=== PATIENT | female | born 1995 | race Caucasian/White ===

== ENCOUNTER 2019-06-29 12:41 | Observation (INO) | payer BC ==
[2019-06-29] MEDS ORDERED: IV RINGERS,LACTATED 1000ML 1,000 ML IV SCH (13:36)
[2019-06-29 13:48] LABS: BILIRUBIN,URINE NEGATIVE (NEG); CLARITY,URINE CLEAR; COLOR,URINE YELLOW; NITRITE,URINE NEGATIVE (NEG); PH,URINE 6.5; PROTEIN,URINE NEGATIVE (NEG-TRACE); UROBILINOGEN,URINE 0.2 mg/dL (0.2 mg/dL)
[2019-06-29 13:51] LABS: BACTERIA,URINE MANY /HPF (0-FEW); RBC,URINE 0 /HPF (0-2); SQUAMOUS EPITHELIAL CELL,UR MOD /LPF; WBC,URINE OCC /HPF (0-4)
== END 2019-06-29 14:12 | disposition home or self-care (01) ==
LOC: 3 SO LND 12:41
PROVIDERS: ADMIT Obstetrics & Gynecology; ATTEND Obstetrics & Gynecology
DX: O36.8120 Decreased fetal movements, second trimester, not applicable or unspecified (principal); Z3A.26 26 weeks gestation of pregnancy
CPT/HCPCS: 81001; 87086; G0378; G0379

== ENCOUNTER 2020-06-03 13:20 | Emergency (ER) | payer BC ==
[~2020-06-03] VITALS: Ht 162.6 cm; Wt 77.3 kg
[2020-06-03 13:59] VITALS: BP 133/77
--- NOTE | 2020-06-03 14:04 | PHYS DOC ---
General Adult EDM: Chief Complaint: ABDOMINAL PAIN IN HPI: HPI: Patient is a 25 year old female presents to the emergency room for evaluation of lower abdominal pain since last . She reports last she found out she was , LMP 04/22/2020, G2, P1. She states she was at a clinic and being treated for gonorrhea when she had a positive test. She reports diffuse lower abdominal pain and concerned because "they told me the gonorrhea can get to the baby". She denies any vaginal bleeding. She reports vaginal discharge has resolved since treatment. She is not having any fevers, dysuria, diarrhea, or vomiting. Review of Systems: Review of Systems: Constitutional: Denies fever or chills. [] Eyes: Denies change in visual acuity. [] HENT: Denies nasal congestion or sore throat. [] Respiratory: Denies cough or shortness of breath. [] Cardiovascular: Denies chest pain or edema. [] GI: REPORTS abdominal pain, DENIES nausea, vomiting, bloody stools or diarrhea. DENIES VAGINAL BLEEDING OR DISCHARGE [] : Denies dysuria. [] Musculoskeletal: Denies back pain or joint pain. [] Integument: Denies rash. [] Neurologic: Denies headache, focal weakness or sensory changes. [] Endocrine: Denies polyuria or polydipsia. [] Lymphatic: Denies swollen glands. [] Psychiatric: Denies depression or anxiety. [] Heart Score: Risk Factors: Risk Factors: DM, Current or recent (<one month) smoker, HTN, HLP, family history of CAD, obesity. Risk Scores: Score 0 - 3: 2.5% MACE over next 6 weeks - Discharge Home Score 4 - 6: 20.3% MACE over next 6 weeks - Admit for Clinical Observation Score 7 - 10: 72.7% MACE over next 6 weeks - Early Invasive Strategies Allergies: Allergies: Allergies Coded Allergies Type Severity Reaction Last Updated Verified Sulfa (Sulfonamide Antibiotics) Allergy Mild Rash 2 Yes azithromycin Allergy Mild Rash 2/20 Yes cefotetan Allergy Mild Rash 12/20 Yes lansoprazole Allergy Mild Rash 12/20 Yes Penicillins Allergy Unknown Rash 2 Yes Physical Exam: PE: Constitutional: Well developed, well nourished, no acute distress, non-toxic appearance. [] HENT: Normocephalic, atraumatic, bilateral external ears normal, oropharynx moist, no oral exudates, nose normal. [] Eyes: PERRLA, EOMI, conjunctiva normal, no discharge. [] Neck: Normal range of motion, no tenderness, supple, no stridor. [] Cardiovascular:Heart rate regular rhythm, no murmur [] Lungs & Thorax: Bilateral breath sounds clear to auscultation [] Abdomen: Bowel sounds normal, soft, DIFFUSE LOWER ABD TTP, NO MCBURNEY POINT TTP, NO REBOUND OR PERITONEAL SIGNS, no masses, no pulsatile masses. [] : no vaginal discharge, no bleeding, os closed, no adnexal ttp Skin: Warm, dry, no erythema, no rash. [] Back: No tenderness, no CVA tenderness. [] Extremities: No tenderness, no cyanosis, no clubbing, ROM intact, no edema. [] Neurologic: Alert and oriented X 3, normal motor function, normal sensory function, no focal deficits noted. [] Psychologic: Affect normal, judgement normal, mood normal. [] Current Patient Data: Labs: Laboratory Tests Test 06/03/20 13:50 06/03/20 13:56 06/03/20 14:00 Urine Collection Type Unknown Urine Color Yellow Urine Clarity Clear Urine pH 6.0 Urine Specific Bonnie 1.020 Urine Protein Negative mg/dL Urine Glucose (UA) Negative mg/dL Urine Ketones (Stick) Negative mg/dL Urine Blood Negative Urine Nitrite Negative Urine Bilirubin Negative Urine Urobilinogen Dipstick 0.2 mg/dL Urine Leukocyte Esterase Negative Urine RBC 0 /HPF Urine WBC 1-4 /HPF Urine Squamous Epithelial Cells Mod /LPF Urine Bacteria Few /HPF Urine Mucus Marked /LPF Urine Test Positive White Blood Count 8.6 x10^3/uL Red Blood Count 4.41 x10^6/uL Hemoglobin 14.3 g/dL Hematocrit 41.4 % Mean Corpuscular Volume 94 fL Mean Corpuscular Hemoglobin 33 pg Mean Corpuscular Hemoglobin Concent 35 g/dL Red Cell Distribution Width 12.6 % Platelet Count 230 x10^3/uL Neutrophils (%) (Auto) 66 % Lymphocytes (%) (Auto) 25 % Monocytes (%) (Auto) 6 % Eosinophils (%) (Auto) 2 % Basophils (%) (Auto) 1 % Neutrophils # (Auto) 5.7 x10^3/uL Lymphocytes # (Auto) 2.2 x10^3/uL Monocytes # (Auto) 0.5 x10^3/uL Eosinophils # (Auto) 0.2 x10^3/uL Basophils # (Auto) 0.1 x10^3/uL Maternal Serum HCG Beta Subunit 963 mIU/mL Sodium Level 138 mmol/L Potassium Level 3.6 mmol/L Chloride Level 103 mmol/L Carbon Dioxide Level 27 mmol/L Anion Gap 8 Blood Urea Nitrogen 10 mg/dL Creatinine 0.7 mg/dL Estimated GFR (Cockcroft-Gault) 103.7 BUN/Creatinine Ratio 14 Glucose Level 84 mg/dL Calcium Level 8.7 mg/dL Total Bilirubin 0.3 mg/dL Aspartate Amino Transf (AST/SGOT) 10 U/L Alanine Aminotransferase (ALT/SGPT) 14 U/L Alkaline Phosphatase 47 U/L Total Protein 7.6 g/dL Albumin 3.8 g/dL Albumin/Globulin Ratio 1.0 EKG: EKG: [] Radiology/Procedures: Radiology/Procedures: [PROCEDURE: OB <14 WKS W/TV INDICATION: Reason: PELVIC PAIN / Spl. Instructions: / History: COMPARISON: None. TECHNIQUE: Grayscale and color ultrasound images uterus and adnexa. Transabdominal and transvaginal images obtained. Transvaginal images were needed to better visualize structures that were limited on transabdominal imaging. FINDINGS: Uterus: 70 x 50 x 40 mm. Intrauterine cystic structure is identified measuring approximately 3 mm. Adjacent hypoechoic region. The endometrial stripe measures up to about 18 mm. Right Ovary: 34 x 21 x 20 mm. Left Ovary: 45 x 20 x 20 mm. Vascular flow identified to bilateral ovaries. Suspected isoechoic lesion at the left ovary measuring up to 25 mm IMPRESSION: * Small cystic structure within the endometrial stripe. Could be secondary to an early gestational sac but given the lack of pole would consider obtaining a follow-up to ensure that there is appropriate development of a pole to exclude a pseudogestational sac or early failure. Thickened endometrial stripe is seen. * Small hypoechoic region is seen adjacent to the cystic structure which could be from subchorionic hematoma. * Isoechoic lesion of the left ovary. Possible cause would include hemorrhagic cyst but attention on follow-up. Electronically signed by: Yonatan Powers MD (06/03/2020 3:22 PM) [id number] ] Course & Med Decision Making: Course & Med Decision Making Pertinent Labs and Imaging studies reviewed. (See chart for details) [LMP 04/22/2020, per my calculations, EDC 01/27/2021, 6 weeks gestation, OB ultrasound indicates a cystic structure with no noted pole, possibly indicating very early versus failure, serum quant 963. 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 Pelvic rest recommended. She was treated last week for gonorrhea, states she also had her partner treated as well, they are practicing abstinence for 2 weeks as directed by clinic. Vital signs stable, patient is afebrile, nontoxic in appearance. She has no peritoneal signs on exam. She is stable for discharge home, will follow up with OB as discussed] Dragon Disclaimer: Dragon Disclaimer: This electronic medical record was generated, in whole or in part, using a voice recognition dictation system. Departure Departure Impression: Primary Impression: Abdominal pain affecting Additional Impression: Ultrasound scan abnormal Disposition: 01 DC HOME SELF CARE/HOMELESS Referrals: DELORIS HERCULES NP-Varinder (PCP) KALEB NEWELL Jr, MD Patient Instructions: Abdominal Pain During Additional Instructions: It is important that you schedule a OB appointment in the next week. The ultrasound today may indicate early versus failure as we have discussed today. Ultrasound and hCG levels will need to be repeated. Henrique quijano practice strict pelvic rest as we have discussed. Return to the emergency room for new or worsening symptoms. [facility] SPEECH THERAPIST Jun 03, 2020 14:04
[2020-06-03 14:14] LABS: BASO # 0.1 x10^3/uL (0.0-0.2); BASO % 1 % (0-3); EOS # 0.2 x10^3/uL (0.0-0.7); EOS % 2 % (0-3); HEMATOCRIT 41.4 % (36.0-47.0); HEMOGLOBIN 14.3 g/dL (12.0-15.5); LYMPH # 2.2 x10^3/uL (1.0-4.8); LYMPH % 25 % (24-48); MEAN CORPUSCULAR HEMOGLOBIN 33 pg (25-35); MEAN CORPUSCULAR HGB CONC 35 g/dL (31-37); MEAN CORPUSCULAR VOLUME 94 fL (79-100); MONO # 0.5 x10^3/uL (0.0-1.1); MONO % 6 % (0-9); NEUT # 5.7 x10^3/uL (1.8-7.7); NEUT % 66 % (31-73); PLATELET COUNT 230 x10^3/uL (140-400); RED BLOOD COUNT 4.41 x10^6/uL (3.50-5.40); RED CELL DISTRIBUTION WIDTH 12.6 % (11.5-14.5); WHITE BLOOD COUNT 8.6 x10^3/uL (4.0-11.0)
[2020-06-03 14:31] LABS: U PREG PATIENT POSITIVE (NEG)
[2020-06-03 14:33] LABS: CALCIUM 8.7 mg/dL (8.5-10.1); CREATININE 0.7 mg/dL (0.6-1.0); GFR 103.7; POTASSIUM 3.6 mmol/L (3.5-5.1)
[2020-06-03 14:39] LABS: ALBUMIN 3.8 g/dL (3.4-5.0); TOTAL BILIRUBIN 0.3 mg/dL (0.2-1.0); TOTAL PROTEIN 7.6 g/dL (6.4-8.2)
[2020-06-03 15:11] LABS: BILIRUBIN,URINE NEGATIVE (NEG); CLARITY,URINE CLEAR; COLOR,URINE YELLOW; NITRITE,URINE NEGATIVE (NEG); PROTEIN,URINE NEGATIVE (NEG-TRACE); UROBILINOGEN,URINE 0.2 mg/dL (0.2 mg/dL)
[2020-06-03 15:18] LABS: BACTERIA,URINE FEW /HPF (0-FEW); RBC,URINE 0 /HPF (0-2)
--- NOTE | 2020-06-03 15:25 | RAD ---
INDICATION: Reason: PELVIC PAIN / Spl. Instructions: / History: COMPARISON: None. TECHNIQUE: Grayscale and color ultrasound images uterus and adnexa. Transabdominal and transvaginal images obtained. Transvaginal images were needed to better visualize structures that were limited on transabdominal imaging. FINDINGS: Uterus: 70 x 50 x 40 mm. Intrauterine cystic structure is identified measuring approximately 3 mm. Adjacent hypoechoic region. The endometrial stripe measures up to about 18 mm. Right Ovary: 34 x 21 x 20 mm. Left Ovary: 45 x 20 x 20 mm. Vascular flow identified to bilateral ovaries. Suspected isoechoic lesion at the left ovary measuring up to 25 mm IMPRESSION: * Small cystic structure within the endometrial stripe. Could be secondary to an early gestational sac but given the lack of pole would consider obtaining a follow-up to ensure that there is appropriate development of a pole to exclude a pseudogestational sac or early failure. Thickened endometrial stripe is seen. * Small hypoechoic region is seen adjacent to the cystic structure which could be from subchorionic hematoma. * Isoechoic lesion of the left ovary. Possible cause would include hemorrhagic cyst but attention on follow-up. Electronically signed by: Yonatan Powers MD (06/03/2020 3:22 PM) [id number]
[2020-06-04 19:11] LABS: GC PROBE Negative (Negative)
== END 2020-06-03 16:00 | disposition home or self-care (01) ==
LOC: ER 13:20
DX: O26.891 Other specified pregnancy related conditions, first trimester (principal); R10.84 Generalized abdominal pain; R93.5 Abnormal findings on diagnostic imaging of other abdominal regions, including retroperitoneum; N89.8 Other specified noninflammatory disorders of vagina; Z3A.01 Less than 8 weeks gestation of pregnancy
CPT/HCPCS: 76801; 76817; 80053; 81001; 81025; 84702; 85025; 87491; 87591; 99284; Q0111